=== PATIENT | female | born 1995 | race Caucasian/White ===

== ENCOUNTER 2019-08-20 10:52 | Emergency (ER) | payer OTHER ==
[2019-08-20] MEDS ORDERED: Prochlorperazine 10 MG/2 ML SDV IVPUSH ONE (11:28)
[2019-08-20] MEDS ORDERED: Sodium Chloride 0.9% 1,000 ML IV ONE (11:28)
[2019-08-20] MEDS ORDERED: diphenhydrAMINE 50 MG/ML SDV IVPUSH ONE (12:26)
[2019-08-20 12:33] LABS: BLOOD UREA NITROGEN,BUN 8 mg/dL (7.0-18.0); CARBON DIOXIDE,CO2 28.7 mmol/L (21.0-32.0); CHLORIDE,CL 102 mmol/L (98-107); GLUCOSE RANDOM 91 mg/dL (74-106); POTASSIUM,K 2.8 mmol/L (3.5-5.1); SODIUM,NA 141 mmol/L (136-145)
--- NOTE | 2019-08-20 12:35 | EDM.PDOC ---
ED [facility] GENERAL MEDICAL PROBLEM - General Chief Complaint: Gastrointestinal Problem Stated Complaint: WEAKNESS/VOMITING Time Seen by Provider: 08/20/19 10:57 - History of Present Illness INITIAL COMMENTS - FREE TEXT/NARRATIVE: HISTORY AND PHYSICAL: History of present illness: 23-year-old female who presents with 2 years of on and off nausea and vomiting, multiple negative CT scans, and multiple visits to doctors without being able to figure out the cause. Patient reports that she does use marijuana multiple times per day. She states this is only thing that makes her feel better other than getting into a hot shower. Over the last several days she was trying to decrease her marijuana use but then would get nauseated and vomit when she eats causing her to use marijuana to get rid of her nausea. This cycle has progressed and worsened. She comes today after just getting out of a very hot shower so she would not have symptoms. She denies any urinary symptoms. No focal abdominal pain. No other associated signs or symptoms. No other modifying, aggravating or alleviating factors. Review of systems: A 10-point review of systems, other than pertinent positives and negatives as stated per HPI, is otherwise negative. Past medical history: As per history of present illness and as reviewed below otherwise noncontributory. Surgical history: As per history of present illness and as reviewed below otherwise noncontributory. Social history: No reported history of drug or alcohol abuse. Family history: As per history of present illness and as reviewed below otherwise noncontributory. Physical exam: VITAL SIGNS: Reviewed. GENERAL: Mild distress HEAD: No signs of head trauma. EYES: Pupils are equal. Extraocular motions intact. EARS: Hearing grossly intact. MOUTH: Oropharynx is normal. NECK: No adenopathy, no JVD. CHEST: Chest with clear breath sounds bilaterally. No wheezes, rales, or rhonchi. CARDIAC: Regular rate and rhythm. Normal S1 and S2, without murmurs, gallops, or rubs. VASCULAR: Peripheral pulses normal and equal in all extremities. ABDOMEN: Soft, without detectable tenderness. No sign of distention. No rebound or guarding, and no masses palpated. MUSCULOSKELETAL: Good range of motion of all major joints. Extremities without clubbing, cyanosis or edema. NEUROLOGIC EXAM: Alert and oriented x 3. No focal sensory or motor deficits. Speech normal. Follows commands. PSYCHIATRIC: Mood normal. SKIN: No rash or lesions. Initial Differential Diagnosis & Plan: The differential diagnosis would include appendicitis, cholecystitis, pyelonephritis, pancreatitis, mesenteric infarction, diverticulitis, small bowel obstruction, volvulus, and ACS. The patient has no focal abdominal tenderness. I feel CT would be inappropriate as she has had multiple negatives in the past. This would increase her risk of malignancy. I will give the patient IV fluids, treat her nausea with Compazine and evaluate her electrolyte panel. I have encouraged her to decrease or stop her marijuana use. Definitive disposition and diagnosis as appropriate pending reevaluation and review of above. Abdomen Pain Score (Numeric/FACES): 1 - Related Data Allergies Allergy/AdvReac Type Severity Reaction Status Date / Time No Known Allergies Allergy Verified 09/20/16 22:47 Home Meds: Home Meds Capsaicin 56.75 gm TP TID #1 cream..g. 08/20/19 [Rx] Citalopram Hydrobromide [Celexa] 20 mg 08/20/19 [History] Ondansetron [Zofran ODT] 4 mg 08/20/19 [History] Potassium Bicarbonate [Potassium Tablet Eff] 25 meq PO BID 14 Days #28 tab 08/19 [Rx] buPROPion HCL [Wellbutrin Xl] 150 mg PO 08/20/19 [History] haloperidoL [Haldol] 2 mg PO Q4H #20 tab 08/20/19 [Rx] Past Medical History - Past Health History Medical/Surgical History: Denies Medical/Surgical History Respiratory History: Reports: Asthma Other Gastrointestinal History: Dealing with nausea/vomiting for past year, unable to find reason why Psychiatric History: Reports: Depression Hematologic History: Reports: Anemia Oncologic (Cancer) History: Reports: None - Infectious Disease History Infectious Disease History: Reports: None Social & Family History - Family History Family Medical History: Noncontributory - Tobacco Use Smoking Status *Q: Never Smoker Second Hand Smoke Exposure: No - Caffeine Use Caffeine Use: Reports: Coffee - Recreational Drug Use Recreational Drug Use: Yes Drug Use in Last 12 Months: Yes Recreational Drug Type: Reports: Marijuana/Hashish ED ROS GENERAL - Review of Systems Review Of Systems: See Below (see note) ED EXAM, GI/ABD - Physical Exam Exam: See Below (noted) EKG INTERPRETATION EKG Interpretation Comments: 12 lead EKG interpretation Obtained: August 20, 2019 at 11:45 AM Rhythm: Sinus Rate: 64 [place]: Normal Intervals: Normal ST/T Segments: No acute ischemic changes Interpretation: Sinus Rhythm Course - Vital Signs Last Recorded V/S: Last Vital Signs Temp 96.7 F L 08/20/19 11:50 Pulse 90 08/20/19 12:19 Resp 18 08/20/19 11:50 BP 127/90 08/20/19 12:59 Pulse Ox 97 08/20/19 12:19 - Orders/Labs/Meds Orders: Active Orders 24 hr Category Date Time Status EKG 12 Lead [EKG Documentation Completion] [RC] STAT Care 08/20/19 11:28 Active UA RFX CINDY AND CULT IF INDIC [URIN] Stat Lab 08/20/19 11:28 Ordered Labs: Laboratory Tests 08/20/19 08/20/19 08/20/19 Range/Units 11:25 11:25 11:25 WBC 6.50 (4.0-11.0) K/uL RBC 4.98 (4.30-5.90) M/uL Hgb 14.2 (12.0-16.0) g/dL Hct 42.9 (36.0-46.0) % MCV 86.1 (80.0-98.0) fL MCH 28.5 (27.0-32.0) pg MCHC 33.1 (31.0-37.0) g/dL RDW Std Deviation 41.5 (28.0-62.0) fl RDW Coeff of David 13 (11.0-15.0) % Plt Count 294 (150-400) K/uL MPV 9.90 (7.40-12.00) fL Neut % (Auto) 60.1 (48.0-80.0) % Lymph % (Auto) 22.2 (16.0-40.0) % [place] % (Auto) 15.4 H (0.0-15.0) % Eos % (Auto) 1.8 (0.0-7.0) % Baso % (Auto) 0.5 (0.0-1.5) % Neut # (Auto) 3.9 (1.4-5.7) K/uL Lymph # (Auto) 1.4 (0.6-2.4) K/uL [place] # (Auto) 1.0 H (0.0-0.8) K/uL Eos # (Auto) 0.1 (0.0-0.7) K/uL Baso # (Auto) 0.0 (0.0-0.1) K/uL Nucleated RBC % 0.0 /100WBC Nucleated RBCs # 0 K/uL Sodium 141 (136-145) mmol/L Potassium 2.8 L (3.5-5.1) mmol/L Chloride 102 (98-107) mmol/L Carbon Dioxide 28.7 (21.0-32.0) mmol/L BUN 8 (7.0-18.0) mg/dL Creatinine 0.8 (0.6-1.0) mg/dL Est Cr Clr Drug Dosing 101.51 mL/min Estimated GFR (MDRD) > 60.0 ml/min Glucose 91 (74-106) mg/dL Calcium 8.7 (8.5-10.1) mg/dL Magnesium 1.9 (1.8-2.4) mg/dL Total Bilirubin 0.6 (0.2-1.0) mg/dL AST 22 (15-37) IU/L ALT 21 (14-63) IU/L Alkaline Phosphatase 42 L (46-116) U/L Total Protein 7.6 (6.4-8.2) g/dL Albumin 4.2 (3.4-5.0) g/dL Globulin 3.4 (2.6-4.0) g/dL Albumin/Globulin Ratio 1.2 (0.9-1.6) HCG, Quant < 1.0 mIU/mL Meds: Medications Discontinued Medications Generic Name Dose Route Start Last Admin Trade Name Freq PRN Reason Stop Dose Admin Diphenhydramine HCl 50 mg 08/20/19 12:26 08/20/19 12:32 Benadryl IVPUSH 08/20/19 12:27 50 mg ONETIME ONE Administration Haloperidol 5 mg 08/20/19 12:36 08/20/19 12:56 Haldol PO 08/20/19 12:37 5 mg ONETIME ONE Administration Sodium Chloride 1,000 mls @ 2,000 mls/hr 08/20/19 11:28 08/20/19 11:46 Normal Saline IV 06/03/20 11:57 2,000 mls/hr .Bolus ONE Administration Potassium Bicarbonate 50 meq 08/20/19 12:36 08/20/19 12:56 Klor-Con Ef PO 08/20/19 12:37 50 meq NOW STA Administration Prochlorperazine Edisylate 10 mg 08/20/19 11:28 08/20/19 11:46 Compazine IVPUSH 08/20/19 11:29 10 mg ONETIME ONE Administration - Re-Assessments/Exams Free Text/Narrative Re-Assessment/Exam: 08/20/19 12:35 Seeing staff let me know the patient is experiencing akathisia's. This is likely secondary to the intravenous Compazine. We will give 50 mg of Benadryl IV. Free Text/Narrative Re-Assessment/Exam: 08/20/19 13:20 Patient is doing much better after supplementation with potassium. She is feeling better after treatment of her akathisia's with Benadryl. I will send her home with some Phenergan suppositories, 2 mg Haldol as needed for her symptoms, and capsaicin cream. I have asked her to follow-up with her doctor and potentially see gastroenterology. My diagnostic impression: 1. Cannabis hyperemesis syndrome 2. Hypokalemia Departure - Departure Time of Disposition: 13:21 Disposition: Home, Self-Care 01 Clinical Impression: Cannabis hyperemesis syndrome concurrent with and due to cannabis dependence, Hypokalemia - Discharge Information *PRESCRIPTION DRUG MONITORING PROGRAM REVIEWED*: Not Applicable *COPY OF PRESCRIPTION DRUG MONITORING REPORT IN PATIENT [place]ER[place]: Not Applicable Instructions: Hypokalemia, Cannabinoid Hyperemesis Syndrome Referrals: Robyn Norris PA [Primary Care Provider] - Forms: ED Department Discharge Additional Instructions: The following information is given to patients seen in the emergency department who are being discharged to home. This information is to outline your options for follow-up care. We provide all patients seen in our emergency department with a follow-up referral. The need for follow-up, as well as the timing and circumstances, are variable depending upon the specifics of your emergency department visit. If you don't have a primary care physician on staff, we will provide you with a referral. We always advise you to contact your personal physician following an emergency department visit to inform them of the circumstance of the visit and for follow-up with them and/or the need for any referrals to a consulting specialist. The emergency department will also refer you to a specialist when appropriate. This referral assures that you have the opportunity for follow-up care with a specialist. All of these measure are taken in an effort to provide you with optimal care, which includes your follow-up. Under all circumstances we always encourage you to contact your private physician who remains a resource for coordinating your care. When calling for follow-up care, please make the office aware that this follow-up is from your recent emergency room visit. If for any reason you are refused follow-up, please contact the [facility] Emergency Department at and asked to speak to the emergency department charge nurse. Thank you for coming to [facility] in [place] for your emergency department needs. Your syndrome today is very consistent with cannabinoid hyperemesis syndrome. We discussed the syndrome at length at the bedside. I have recommended that you slowly taper off of your marijuana and use these medications to help. I recommend you follow-up with your doctor and potentially see a survey research teacher. Please return to the emergency department if you get muscle cramping, other symptoms, or any other concerns. We are always happy to see you. Sepsis Event Note - Evaluation Sepsis Screening Result: No Definite Risk - Focused Exam Vital Signs: Vital Signs Temp Pulse Resp BP Pulse Ox 08/20/19 12:59 127/90 08/20/19 12:19 90 130/80 97 08/20/19 11:50 96.7 F L 74 18 134/88 96 Date Exam was Performed: 08/20/19 Time Exam was Performed: 13:16 - My Orders Last 24 Hours: My Active Orders 08/20/19 11:28 EKG 12 Lead [EKG Documentation Completion] [RC] STAT UA RFX CINDY AND CULT IF INDIC [URIN] Stat - Assessment/Plan Last 24 Hours: My Active Orders 08/20/19 11:28 EKG 12 Lead [EKG Documentation Completion] [RC] STAT UA RFX CINDY AND CULT IF INDIC [URIN] Stat
[2019-08-20] MEDS ORDERED: Potassium Bicarbonate 25 MEQ Tab.EFF PO STA (12:36)
[2019-08-20] MEDS ORDERED: Haloperidol 5 MG Tab PO ONE (12:36)
[2019-08-20 13:35] VITALS: BP 128/76; PULSE 71
== END 2019-08-20 13:34 | disposition home or self-care (01) ==
LOC: MW.ED 10:52
DX: F12.288 Cannabis dependence with other cannabis-induced disorder (principal); E87.6 Hypokalemia; F32.9 Major depressive disorder, single episode, unspecified; Z79.899 Other long term (current) drug therapy
CPT/HCPCS: 36415; 80053; 81001; 83735; 84702; 85025; 93005; 96361; 96374; 96375; 99283; 99284-25; A9270-GY; J0780; J1200; J7030